=== PATIENT | female | born 1975 | race Caucasian/White ===

== ENCOUNTER → 2023-03-23 11:30 | Outpatient (CLI) | payer OTHER, SELFPAY ==
--- NOTE | 2023-03-23 | DI.RAD.S_ITS ---
PROCEDURE: XR RIBS BI MIN 4V W CXR1V INDICATIONS: multiple fractures of right ribs TECHNIQUE: 2 views of the bilateral ribs were acquired, along with a single view chest. COMPARISON: None. FINDINGS: Surgical changes and devices: None. Bones and chest wall: No fractures or dislocations. No suspicious bony lesions. Overlying soft tissues appear unremarkable. Lungs and pleura: No pleural effusions or pneumothorax. Lungs appear clear. Mediastinum: Mediastinal contours appear normal. Heart size is normal. IMPRESSION: No displaced rib fractures. No acute cardiopulmonary findings. Dictated by: Anita Medina M.D. on 03/23/2023 at 14:09 Approved by: Anita Medina M.D. on 03/23/2023 at 14:10
== END ==
PROVIDERS: Referring Provider Chiropractor; Visit Provider Chiropractor
DX: S22.41XA Multiple fractures of ribs, right side, initial encounter for closed fracture (principal); X58.XXXA Exposure to other specified factors, initial encounter
CPT/HCPCS: 71111